=== PATIENT | female | born 1955 | race Caucasian/White ===

== ENCOUNTER → 2016-09-24 | Day surgery (SDC) | payer MEDICARE ==
[~2016-09-24] MED LIST: Lactated Ringers 1,000 ML IV SCH; Lactated Ringers 1,000 ML ONE; Lidocaine 4% Top Soln 5 ML LTA Syringe ONE; Lidocaine 4% Top Soln 5 ML LTA Syringe TOP ONE; Propofol 200 MG/20 ML SDV IV ONE
[2016-09-24 11:04] VITALS: BP 115/64
--- NOTE | 2016-09-24 11:26 | OR ---
DATE OF OPERATION: 09/24/2016 PREOPERATIVE DIAGNOSIS: 1. EPIGASTRIC PAIN. 2. CHRONIC GASTROESOPHAGEAL REFLUX DISEASE. POSTOPERATIVE DIAGNOSIS: 1. EPIGASTRIC PAIN. 2. CHRONIC GASTROESOPHAGEAL REFLUX DISEASE. SURGEON: Casa Boswell MD PROCEDURE: ESOPHAGOGASTRODUODENOSCOPY WITH BIOPSIES X4, LESLIE. 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 COMPLICATIONS: None. SPECIMEN: 1. Duodenal biopsy x2. 2. Antral biopsy x1. 3. EG junction biopsy x1. 4. LESLIE. FINDINGS: 1. Full-length EGD. 2. Mild antral gastritis/duodenitis. 3. Small hiatal hernia with spontaneous GERD and minimal reflux esophagitis. 4. Heterotopic gastric tissue, duodenal bulb. RECOMMENDATIONS: Ongoing medical follow up and ongoing use of proton pump therapy. INDICATIONS: The patient has a history of chronic reflux. She has been having some increase in epigastric pain. We elected to proceed with EGD. DESCRIPTION OF PROCEDURE: The patient was prepped and draped, placed in the left lateral decubitus position. A lubricated Olympus gastroscope was inserted over a bit advanced cricopharyngeus area and easily intubated in the esophagus. Esophageal lining was benign in its entire course. The Z-line was crisp and sharp around 38 cm. There was some mild esophagitis present right in around the EG junction, a biopsy of that area was accomplished. There was a small hiatal hernia present with spontaneous reflux. No ulceration was seen. No signs of Wood's changes or stricturing. Scope was passed into the stomach through the pylorus and into the third portion of duodenum. The second and third portion of duodenum looked benign. The duodenal bulb had some very mild duodenitis and few signs of heterotopic gastric tissue. Biopsy of both were taken. The scope was brought back into the stomach and retroflexed. The upper fundus and cardia were completely unremarkable other than the small hernia, visualized from below. Thorough evaluation of the gastric lining showed no signs of any polyps, mass, ulceration, or bleeding sites. There were some very mild antral gastritis in its most proximal portion, maybe a small focal erosion. Biopsy of that was taken along with a LESLIE test. Air was then suctioned. Scope was removed without complication. SHAUNA/MARQUEZ /[id number]
== END ==
LOC: CC.SDS 08:56
PROVIDERS: ATTEND Family Medicine
DX: K29.50 Unspecified chronic gastritis without bleeding (principal); K20.9 Esophagitis, unspecified; K29.80 Duodenitis without bleeding; K44.9 Diaphragmatic hernia without obstruction or gangrene
CPT/HCPCS: 43239; 87081; A9270; J7120; 00740; 88305; J2704

== ENCOUNTER 2019-05-12 19:21 | Emergency (ER) | payer MEDICARE ==
[2019-05-12 19:27] VITALS: BP 145/55; PULSE 76
--- NOTE | 2019-05-12 19:39 | EDM.PDOC ---
ED HPI GENERAL MEDICAL PROBLEM - General Chief Complaint: Upper Extremity Injury/Pain Stated Complaint: SHOULDER PAIN Time Seen by Provider: 05/12/19 19:38 Source of Information: Reports: Patient History Limitations: Reports: No Limitations - History of Present Illness INITIAL COMMENTS - FREE TEXT/NARRATIVE: This patient is a 64 year old female that presents to the ER with her . Patient reports being seen for convenience, due to family in ER being seen. Patient presents for a nonemergency complaint of left shoulder pain for 1 month that hurts with movement, without injury. Has not seen her PCP. Duration: Week(s): (4) Location: Reports: Upper Extremity, Left Quality: Reports: Ache Severity: Mild Improves with: Reports: Immobilization Worsens with: Reports: Movement Left Shoulder Pain Score (Numeric/FACES): 8 - Related Data Allergies Allergy/AdvReac Type Severity Reaction Status Date / Time acetaminophen [From Lortab] Allergy Stomach Verified 05/12/19 19:28 Upset aspirin Allergy Vomiting Verified 05/12/19 19:28 celecoxib [From Celebrex] Allergy Stomach Verified 05/12/19 19:28 Ache doxycycline Allergy Stomach Verified 05/12/19 19:28 Upset hydrocodone [From Lortab] Allergy Stomach Verified 05/12/19 19:28 Upset pentazocine lactate Allergy Hyperactivi Verified 05/12/19 19:28 [From Talwin] ty venom-honey bee Allergy Anaphylactic Verified 05/12/19 19:28 [bee venom (honey bee)] Shock Home Meds: Home Meds Acetaminophen [Tylenol] 500 mg PO QID PRN 11/13/15 [History] Acetaminophen with Codeine [Acetaminophen-Cod #2] 1 - 2 tab PO Q6H PRN 11/13/15 [History] Budesonide/Formoterol [Symbicort 160-4.5 Mcg Inhaler] 2 inh INH BID PRN [History] Cyclobenzaprine HCl 10 mg PO Q8H PRN 11/13/15 [History] EPINEPHrine [Epipen 2-Rafael] 1 injection IM ASDIRECTED PRN 11/13/15 [History] Ibuprofen 200 mg PO TID PRN 11/13/15 [History] Montelukast [Singulair] 1 tab PO DAILY PRN 11/13/15 [History] Pantoprazole [Protonix] 40 mg PO DAILY PRN 11/13/15 [History] Bimatoprost [LUMIGAN 0.01% Ophth Soln] 1 drop EYELF BEDTIME 11/14/15 [History] Pantoprazole Sodium [Protonix] 40 mg PO DAILY 09/22/16 [History] Simvastatin 1 tab PO DAILY 05/12/19 [History] traMADol HCl [Tramadol HCl] 1 tab PO Q4H PRN 05/12/19 [History] Review of Systems - Review of Systems Review Of Systems: See Below Constitutional: Reports: No Symptoms. Denies: Chills, Diaphoresis, Fever, Weakness Respiratory: Reports: No Symptoms. Denies: Shortness of Breath Cardiovascular: Reports: No Symptoms. Denies: Chest Pain GI/Abdominal: Reports: No Symptoms. Denies: Nausea, Vomiting Musculoskeletal: Reports: Shoulder Pain (left) Skin: Reports: No Symptoms Neurological: Reports: No Symptoms. Denies: Headache ED EXAM, GENERAL - Physical Exam Exam: See Below Exam Limited By: No Limitations General Appearance: Alert, WD/WN, No Apparent Distress Respiratory/Chest: No Respiratory Distress, Lungs Clear, Normal Breath Sounds, No Accessory Muscle Use Cardiovascular: Normal Peripheral Pulses, Regular Rate, Rhythm, No Gallop, No JVD, No Murmur, No Rub Peripheral Pulses: 2+: Radial (L), Radial (R) Extremities: Normal Inspection, Normal Capillary Refill, Limited Range of Motion (due to pain, but present. ), Other (No heat, swelling, redness, heat. No evidence of infection, no evidence of fracture or dislocation. ). No: Slow Capillary Refill, Joint Swelling, Increased Warmth, Redness Course - Vital Signs Last Recorded V/S: Last Vital Signs Temp 98.0 F 05/12/19 19:22 Pulse 76 05/12/19 19:22 Resp 16 05/12/19 19:22 BP 145/55 H 05/12/19 19:22 Pulse Ox 98 05/12/19 19:22 Departure - Departure Time of Disposition: 19:47 Disposition: Home, Self-Care 01 Clinical Impression: Shoulder pain Qualifiers: Chronicity: acute Laterality: left Qualified Code(s): M25.512 - Pain in left shoulder - Discharge Information *PRESCRIPTION DRUG MONITORING PROGRAM REVIEWED*: No *COPY OF PRESCRIPTION DRUG MONITORING REPORT IN PATIENT NICOLÁS: No Instructions: Shoulder Pain Forms: ED Department Discharge Additional Instructions: Followup with primary care provider Return for Emergencies Tylenol for pain - Assessment/Plan Plan: PLEASE SEE RN NOTE FOR PFSH.
== END 2019-05-12 19:50 | disposition home or self-care (01) ==
LOC: CC.ED 19:21
DX: M25.512 Pain in left shoulder (principal); Z88.6 Allergy status to analgesic agent; Z88.1 Allergy status to other antibiotic agents; Z91.030 Bee allergy status; Z88.5 Allergy status to narcotic agent
CPT/HCPCS: 99283